=== PATIENT | female | born 1980 | race Caucasian/White ===

== ENCOUNTER 2019-10-24 06:01 | Emergency (ER) | payer SELFPAY ==
[~2019-10-24] VITALS: Ht 152.4 cm; Wt 52.6 kg
[2019-10-24 06:07] VITALS: BP_SYST 131
--- NOTE | 2019-10-24 06:07 | NUR ---
Placed in room 8 . Placed on retail financial analyst, blood pressure machine and pulse oximeter. To gown for exam. Side rails up.
--- NOTE | 2019-10-24 06:08 | NUR ---
PT A&O X4 C/O OF BODY ACHES FOR PAST MONTH ON AND OFF, CHEST TIGHTNESS 5/10 STARTED YESTERDAY, VOMITING STARTED THIS MORNING AND HAS HAD 4 EPISODES. PT REPORTS SUBSTERNAL CHEST TIGHTNESS NON RADIATING. PT REPORTS HAVING A SORE THROAT BUT IT WENT AWAY ON ITS OWN. PT DENIES DIARRHEA, CONSTIPATION, PAINFUL URINATION. NO OTHER MEDICAL COMPLAINTS AT THIS TIME. WILL CONTINUE TO MONITOR.
--- NOTE | 2019-10-24 06:21 | NUR ---
ER Dr. SEN at bedside examining patient.
[2019-10-24] MEDS ORDERED: NACL 0.9% 1,000 ML IV ONE (06:23)
[2019-10-24] MEDS ORDERED: ONDANSETRON HCL 4 MG/2 ML VIAL IVP ONE (06:30)
--- NOTE | 2019-10-24 06:45 | NUR ---
# 20 gauge angiocath placed to LAC. Use of asceptic technique. Opsite placed over site. Blood return noted. Blood for lab drawn from site. Flushed with 10 cc of normal saline. No evidence of infiltration noted. Patient tolerated well.
[2019-10-24 07:05] LABS: BILIRUBIN,URINE NEGATIVE (NEGATIVE); BLOOD, URINE 3+ (NEGATIVE); CLARITY/URINE CLEAR (CLEAR); COLOR,URINE YELLOW (YELLOW); GLUCOSE,URINE NEGATIVE (NEGATIVE); KETONES,URINE NEGATIVE (NEGATIVE); LEUKOCYTE ESTERASE ,URINE NEGATIVE (NEGATIVE); NITRITE, URINE NEGATIVE (NEGATIVE); PH,URINE 6.5 (5.0-8.0); PROTEIN URINE 1+ (NEGATIVE); UROBILINOGEN,URINE 0.2 (0.2-1.0)
--- NOTE | 2019-10-24 07:13 | NUR ---
Report received from AYESHA Jameson. Introduced self to patient. She is calm and cooperative, VSS, and patient states pain to right ear after having a tooth ache. aware, awaiting med orders.
[2019-10-24] MEDS ORDERED: ACETAMINOPHEN 325 MG TABLET PO ONE (07:15)
--- NOTE | 2019-10-24 07:18 | NUR ---
Called and spoke with Malathi in lab, confirmed blood is in the lab.
[2019-10-24 07:19] LABS: BACTERIA,URINE RARE /HPF (None Seen); WBC,URINE 0-3 /HPF (0-3)
[2019-10-24 07:20] LABS: MUCUS,URINE 2+ /LPF (None Seen)
[2019-10-24 07:24] LABS: EOSINOPHILS % (AUTO) 0.7 % (0.0-4.0); HEMATOCRIT 38.3 % (36-48); HEMOGLOBIN 12.2 g/dL (12.0-16.0); LYMPHOCYTES # (AUTO) 1.2 K/uL (1.0-5.5); LYMPHOCYTES % (AUTO) 29.3 % (20.5-51.5); MEAN CORPUSCULAR HEMOGLOBIN 27 pg (27-31); MEAN CORPUSCULAR HGB CONC 32 % (32-36); MEAN CORPUSCULAR VOLUME 85 fL (79.0-98.0); MONOCYTES # (AUTO) 0.5 K/uL (0.0-1.0); MONOCYTES % (AUTO) 12.1 % (1.7-9.3); NEUTROPHILS # (AUTO) 2.3 K/uL (1.8-7.7); NEUTROPHILS % (AUTO) 56.9 % (40.0-70.0); PLATELET COUNT (AUTO) 393 K/uL (130-430); RED CELL DISTRIBUTION WIDTH 15.5 % (9.0-15.0); WHITE BLOOD COUNT (AUTO) 4.1 K/uL (4.8-10.8)
[2019-10-24 07:38] LABS: ANION GAP 7 (5-15); CALCIUM 8.3 mg/dL (8.4-11.0); CHLORIDE 102 mmol/L (98-107); CREATININE 0.72 mg/dL (0.55-1.30); GLUCOSE 117 mg/dL (70-99); POTASSIUM 3.2 mmol/L (3.5-5.1); SODIUM SERUM 139 mmol/L (136-145); UREA NITROGEN, BLOOD 11 mg/dL (8-21)
[2019-10-24 07:44] LABS: ALANINE AMINOTRANSFERASE 25 U/L (12-78); ALBUMIN 3.4 g/dL (3.4-4.8); ASPARTATE AMINOTRANSFERASE 20 U/L (10-37); LIPASE 72 U/L (73-393); TOTAL BILIRUBIN 0.1 mg/dL (0.0-1.0)
[2019-10-24 07:45] LABS: ALCOHOL, BLOOD < 3 mg/dL (<10); GFR AFRICAN AMERICAN 117 mL/min (>90)
[2019-10-24] MEDS ORDERED: POTASSIUM CHLORIDE 20 MEQ/PKT PACKET PO ONE (08:00)
--- NOTE | 2019-10-24 08:00 | NUR ---
Patient given written and verbal discharge instructions and verbalizes understanding. ER MD discussed with patient the results and treatment provided. Patient in stable condition. ID arm band removed. IV catheter removed intact and dressing applied, no active bleeding. Rx of Zofran given. Patient educated on pain management and to follow up with PMD. Pain Scale 3/10. Opportunity for questions provided and answered. Medication side effect fact sheet provided.
[2019-10-24 08:14] VITALS: BP_SYST 103
== END 2019-10-24 08:14 | disposition home or self-care (01) ==
LOC: SED 06:01
DX: R11.2 Nausea with vomiting, unspecified (principal); E87.6 Hypokalemia; F10.10 Alcohol abuse, uncomplicated; Y90.0 Blood alcohol level of less than 20 mg/100 ml; Z88.5 Allergy status to narcotic agent
CPT/HCPCS: 36415; 80053; 81000; 81025; 83690; 85025; 96361; 96374; 99283; G0482; J2405; J7030

== ENCOUNTER 2020-04-24 22:29 | Emergency (ER) | payer MEDICAID ==
[~2020-04-24] VITALS: Ht 152.4 cm; Wt 46.7 kg
[2020-04-24 22:45] VITALS: BP_SYST 125
[2020-04-25] MEDS ORDERED: KETOROLAC TROMETHAMINE 60 MG/2 ML VIAL IM ONE (02:00)
[2020-04-25] MEDS ORDERED: AMOXICILLIN 500 MG CAPSULE PO ONE (02:00)
[2020-04-25 03:02] VITALS: BP_SYST 128
== END 2020-04-25 03:02 | disposition home or self-care (01) ==
LOC: SED 22:29
DX: K08.89 Other specified disorders of teeth and supporting structures (principal); H66.91 Otitis media, unspecified, right ear
CPT/HCPCS: 81025; 96372; 99283; J1885